=== PATIENT | female | born 2005 | race Two or more races ===

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

== ENCOUNTER 2024-05-30 17:26 | Emergency (ER) | payer MEDICAID ==
[~2024-05-30] VITALS: Ht 154.9 cm; Wt 64.4 kg
[~2024-05-30 17:26] MED LIST changes: +AZIT-43 PO; -AZIT250T9 PO; +IBUP1TAB5 PO; +MECL-90 PO; -MECL25TA18 PO
--- NOTE | 2024-05-30 17:46 | ED.PDOC ---
SOB-HPI HPI Comments HPI: Poor Historian. 18 y/o F presents to the ED for CC of shortness of breath. Patient states, she has been experiencing shortness of breath x1hour following working out at the gym. Patient comments on, taking pre-workout before the gym and is unsure if symptoms are related. Patient endorses, new symptoms of weakness and vertigo following her shortness of breath episode. Patient denies chest pain, nausea, vomiting, headache, or lightheadedness. No other symptoms or modifying factors at this time patient typically goes to the gym 6 times a week for proximally at least half an hour of exercise. This never happened to her before. Initial Vital Signs: Temp :98.2 BP:143/85 HR:104 RR:16 SpO2: 98 Past Medical History: DENIES ANY Past Surgical History:DENIES ANY Social History: Denies smoking, ETOH, or drug use. Medications: DENIES ANY Denies family history of coronary artery disease. Allergies: NKDA REVIEW OF SYSTEMS: CONSTITUTIONAL: Denies acute: fever, diaphoresis, chills, generalized weakness. HEAD: Denies acute: headache, photophobia Eyes: Denies acute: Double vision, vision loss, eye pain, eye discharge. EARS: Denies acute: tinnitus, hearing loss, ear discharge, ear pain, THROAT: Denies acute: sore throat, swelling, difficulty swallowing , pain with swallowing, change in voice. NECK: Denies acute: neck pain, neck swelling, stiff neck. HEART: Denies acute : palpitations, LUNGS: Denies acute: wheezing, cough, hemoptysis ABDOMEN: Denies acute: abdominal pain, Nausea, Vomiting, diarrhea, melena , hematemesis, hematochezia SKIN: Denies acute: rash, redness, lesions, itchiness. EXTREMITIES: Denies acute: calf pain, numbness, tingling, weakness, denies pain in extremity. Denies acute: Low back pain. Neuro: Denies acute: focal neurological deficit, motor or sensory focal neurological deficit, tremors, seizure like activity, confusion, dizziness, change in mental status, loss of bowel or bladder function, cauda equina like symptoms. : Denies acute: dysuria, hematuria, flank pain, increase in urinary frequency. PSYCH: Denies acute: hallucination, suicidal ideation, homicidal ideation. FEMALE: Denies acute: abnormal vaginal bleeding, foul odor, unusual discharge. PHYSICAL EXAM: General: no acute distress, awake and alert. Head: normocephalic, atraumatic. Neck: supple, trachea is midline, no swelling. Throat: Normal phonation. Eyes:, no erythema, no purulent discharge, no proptosis, no icterus. Heart: regular tachycardic, no significant murmur appreciated. Lungs: no apparent respiratory distress, Able to speak in full sentences. No wheezing, no rhonchi, no crackles. No stridors Clear to auscultation bilaterally. Abdomen: non tender to palpation, non distended, soft, no guarding, no rebound, + bowel sounds. Neuro: Awake, Alert, oriented to name, self, situation, follows commands GCS=15. Speech is normal. Skin: no petechia, no purpura, no cyanosis, non-pale, not jaundice. Lower extremities: --no - Pitting edema no deformity, no focal swelling, no calf TTP. Makes eye contact. moves all four extremities. Face: no apparent facial droop. Ambulating in the ED independently. ED COURSE: Chief Complaint: Shortness of Breath Time Seen by MD: 17:44 Primary Care Provider: MARISABELIES Reviewed notes: Nurses Notes, Medications, Allergies Information Source: Patient Mode of Arrival: Ambulatory Severity: Moderate Timing: Hours Duration: Since onset Context: With Heavy Exertion History of: None Prehospital treatment: None Modifying Factors: Nothing Was a procedure done? Was a procedure done?: No Differential Dx Differential Diagnosis: Anxiety, Panic Attack, Other (DDx include ACS, unstable angina, anxiety, PE, pneumothroax, neoplasm, cardiac ischemia, COPD, asthma, CHF, pleural effusion, tobacco abuse, pneumonia, hypoxia, hypercapnia, anemia., infection/sepsis., pulmonary edema. Asthma, Cardiac tamponade, infection.) X-Ray, Labs, Meds, VS Vital Signs Date Time Temp Pulse Resp B/P (MAP) Pulse Ox O2 Delivery O2 Flow Rate FiO2 05/30/24 22:46 97.9 92 12 145/75 (98) 100 97.9 05/30/24 21:19 20 99 Room Air* 0 21 05/30/24 19:01 93 20 98 Room Air* 0 21 05/30/24 18:48 97.8 93 19 149/77 (101) 98 97.8 05/30/24 17:46 98.2 82 16 143/85 (104) 98 05/30/24 17:46 16 98 Room Air* 0 21 05/30/24 17:45 107 Lab Test 05/30/24 20:50 05/30/24 20:05 05/30/24 19:02 05/30/24 17:49 Range/Units Lactic Acid Level 2.0 2.5 *H 2.9 *H 0.4-2.0 mmol/L Troponin I High Sensitivity 3 L < 3 L < 3 L </=34 ng/L Urine Color Yellow Yellow Urine Clarity Clear Clear Urine pH 5.5 5.0-9.0 Urine Specific [place] 1.032 1.001-1.035 Urine Protein Trace H Negative Urine Ketones 3+ H Negative Urine Blood 1+ H Negative /uL Urine Nitrite Negative Negative Urine Bilirubin Negative Negative Urine Urobilinogen Normal Negative mg/dL Urine Leukocyte Esterase Negative Negative /uL Urine RBC 1 0 - 4 /hpf Urine Microscopic WBC 1 0-5 /HPF Urine Squamous Epithelial Cells Few <5 /hpf Urine Bacteria None seen None Seen /hpf Urine Mucus Few None Seen Urine Glucose Normal Normal mg/dL Urine Test Negative Negative Urine Opiates Screen Neg NEGATIVE Urine Fentanyl Screen Neg NEGATIVE Urine Barbiturates Screen Neg NEGATIVE Urine Phencyclidine Screen Neg NEGATIVE Urine Amphetamines Screen Neg NEGATIVE Urine Benzodiazepines Screen Neg NEGATIVE Urine Cocaine Screen Neg NEGATIVE Urine Cannabinoids Screen Neg NEGATIVE White Blood Count 7.0 4.4-10.8 10^3/uL Red Blood Count 4.78 4.0-5.20 10^6/uL Hemoglobin 13.8 12.2-16.2 g/dL Hematocrit 40.5 36.0-46.0 % Mean Corpuscular Volume 84.7 80.0-100.0 fL Mean Corpuscular Hemoglobin 29.0 28.0-32.0 pg Mean Corpuscular Hemoglobin Concent 34.2 32.0-36.0 g/dL Red Cell Distribution Width 15.5 H 11.8-14.3 % Platelet Count 295 140-450 10^3/uL Mean Platelet Volume 7.4 6.9-10.8 fL Neutrophils (%) (Auto) 72.9 37.0-80.0 % Lymphocytes (%) (Auto) 17.9 10.0-50.0 % Monocytes (%) (Auto) 7.0 0.0-12.0 % Eosinophils (%) (Auto) 0.2 0.0-7.0 % Basophils (%) (Auto) 2.0 0.0-2.0 % Neutrophils # (Auto) 5.1 1.6-8.6 10 ^3/uL Lymphocytes # (Auto) 1.2 0.4-5.4 10 ^3/uL Monocytes # (Auto) 0.5 0-1.3 10 ^3/uL Eosinophils # (Auto) 0 0-0.8 10 ^3/uL Basophils # (Auto) 0.1 0-0.2 10 ^3/uL Nucleated Red Blood Cells 0.0 % D-Dimer, Quantitative 0.20 0.0-0.49 mg/L FEU Sodium Level 140 136-145 mmol/L Potassium Level 3.6 3.5-5.1 mmol/L Chloride Level 107 98-107 mmol/L Carbon Dioxide Level 19 L 20-31 mmol/L Anion Gap 14 5-15 Blood Urea Nitrogen 12 9-23 mg/dL Creatinine 1.00 0.550-1.02 mg/dL Glomerular Filtration Rate Calc 83 >90 mL/min BUN/Creatinine Ratio 12.0 10.0-20.0 Serum Glucose 116 H 74-106 mg/dL Calcium Level 10.8 H 8.7-10.4 mg/dL Magnesium Level 1.8 1.6-2.6 mg/dL Total Bilirubin 0.8 0.2-1.0 mg/dL Aspartate Amino Transferase (AST) 14 13-40 U/L Alanine Aminotransferase (ALT) 15 7-40 U/L Alkaline Phosphatase 75 46-116 U/L B-Type Natriuretic Peptide 22.67 0-100 pg/mL Total Protein 7.6 5.7-8.2 g/dL Albumin 5.1 H 3.2-4.8 g/dL Thyroid Stimulating Hormone (TSH) 1.90 0.55-4.78 uIU/mL Test 05/30/24 17:41 Range/Units POC Glucose 123 H 70-106 mg/dl Current Medications Medications (Trade) Dose Ordered Sig/Kate Route Start Time Stop Time Status Last Admin Sodium Chloride 1,000 ml @ 1,000 mls/hr Q1H ONCE IV 05/30/24 18:45 05/30/24 19:44 DC 05/30/24 18:59 Sodium Chloride 1,000 ml @ 1,000 mls/hr Q1H ONCE IV 05/30/24 20:15 05/30/24 21:14 DC 05/30/24 20:56 Albuterol (Ventolin Medneb) 2.5 mg ONCE ONCE NEB 05/30/24 22:00 05/30/24 22:01 DC 05/30/24 22:19 Ipratropium [place] (Atrovent Medneb) 1 mg ONCE ONCE NEB 05/30/24 22:00 05/30/24 22:01 DC 05/30/24 22:19 [place] [address] Ph: [phone] DIAGNOSTIC IMAGING Diagnostic Imaging Report : [id number] Signed PATIENT: YENIFER ANGEL ACCT: [id number] UNIT: [id number] : 2005 LOC: ER ROOM / BED: / AGE / SEX: 18 / F ADM STATUS: REG ER SERVICE [id number] ORDERING PHYSICIAN: SUMI HUERTAS DO PROCEDURE(s): CXRP - CHEST PORTABLE REASON: sob ORDER NUMBER(s): [id number], ACCESSION NUMBER(s): [id number] CHEST RADIOGRAPH Indication: sob Technique: Single frontal view of the chest was obtained COMPARISON: CHEST PORTABLE on DOS: 10/19/21, CHEST PORTABLE on DOS: 10/08/21, CXRP on DOS: 10/08/21 FINDINGS: Lines and Tubes: None Lungs: Clear Pleura: No effusion. No pneumothorax. Cardiomediastinal contours: Unremarkable Bones: Unremarkable IMPRESSION: No acute disease. ATED BY: JEREMIE CRAIN MD DICTATED DATE/TIME: 05/30/241803 SIGNED BY: JEREMIE CRAIN MD SIGNED DATE/TIME: 05/30/241803 CC: Time of 1ST Reevaluation: 18:04 Reevaluation 1ST: Unchanged Patient Education/Counseling: Diagnosis, Treatment Family Education/Counseling: No Family Present Comments Patient presented with the above HPI.--- SHORTNESS OF BREATH ---workup was initiated. patient was found with the above mentioned diagnosis. the following medications were ordered: please refer to order lists of meds and tests obtained by myself Dr. Huertas. Patient ED course and VS have been stabilized. Patient has been reassessed in the ED and remained in a stable condition. Pertinent incidental findings were discussed with the patient and/or family. Patient/family voices understanding and is agreeable with plan. Patient has been observed in the ED adequate length of time to insure improvement/stability. Escalation of care considered: Consideration of escalation to observation or admission Patient appeared anxious. Patient was DISCHARGED home in a stable condition. All the reports of any imaging studies that were ordered by myself were reviewed by myself. Departure 1 Departure Time of Disposition: 21:56 Impression: Primary Impression: Dyspnea Disposition: 01 HOME / SELF CARE / HOMELESS Condition: Stable Additional Instructions: Additional discharge instructions: You MUST follow-up with your primary care/family doctor in 1 to 2 days. If you are unable to see your primary care/family doctor, please return to our emergency room for re-assessment and re-evaluation in 1 to 2 days. Return to the emergency room here in our facility or to the nearest ER PAT if your symptoms change or worsen. CONSULTATIONS: you MUST Follow-up for consultation as soon as possible with: pulmonology and cardiology in 1-2 days. Please call for appointment. You MUST call the consultants office yourself to make an appointment. You may need to arrange that through your insurance and/or your primary/family doctor. If you are unable to see the residential solar consultant in 1 to 2 days, you must return to our emergency room (or any other ER of your choice) for re-assessment and re- evaluation. Adequate fluid hydration. Below is a copy of your radiological report for follow up: [address] [address] Ph: [phone] DIAGNOSTIC IMAGING Diagnostic Imaging Report : [id number] Signed PATIENT: YENIFER ANGEL ACCT: [id number] UNIT: [id number] : 2005 LOC: ER ROOM / BED: / AGE / SEX: 18 / F ADM STATUS: REG ER SERVICE 1741 ORDERING PHYSICIAN: SUMI HUERTAS DO PROCEDURE(s): CXRP - CHEST PORTABLE REASON: sob ORDER NUMBER(s): [id number], ACCESSION NUMBER(s): [id number] CHEST RADIOGRAPH Indication: sob Technique: Single frontal view of the chest was obtained COMPARISON: CHEST PORTABLE on DOS: 10/19/21, CHEST PORTABLE on DOS: 10/08/21, CXRP on DOS: 10/08/21 FINDINGS: Lines and Tubes: None Lungs: Clear Pleura: No effusion. No pneumothorax. Cardiomediastinal contours: Unremarkable Bones: Unremarkable IMPRESSION: No acute disease. ATED BY: JEREMIE CRAIN MD DICTATED DATE/TIME: 05/30/241803 SIGNED BY: JEREMIE CRAIN MD SIGNED DATE/TIME: 05/30/241803 CC: Discharged With: Self Critical Care Note Critical Care Time?: No Heart Score Heart Score: Heart Score Response (Comments) Value History Slightly Suspicious 0 EKG Normal 0 Age <45 0 Risk Factors No known risk factors 0 Troponin Normal limit 0 Total 0 I personally scribed for SUMI HUERTAS DO ([email or web address]) on 05/30/24 at 17:46. Electronically submitted by Iona Lott ([email or web address]). I personally scribed for SUMI HUERTAS DO ([email or web address]) on 05/30/24 at 17:50. Electronically submitted by Iona Lott ([email or web address]). I personally scribed for SUMI HUERTAS DO ([email or web address]) on 05/30/24 at 18:15. Electronically submitted by Iona Lott ([email or web address]). SUMI HUERTAS DO May 30, 2024 17:46
--- NOTE | 2024-05-30 18:09 | DVH ---
CHEST RADIOGRAPH Indication: sob Technique: Single frontal view of the chest was obtained COMPARISON: CHEST PORTABLE on DOS: 10/19/21, CHEST PORTABLE on DOS: 10/08/21, CXRP on DOS: 10/08/21 FINDINGS: Lines and Tubes: None Lungs: Clear Pleura: No effusion. No pneumothorax. Cardiomediastinal contours: Unremarkable Bones: Unremarkable IMPRESSION: No acute disease.
[2024-05-30 18:14] LABS: Basophils # (auto) 0.1 10 ^3/uL (0-0.2); Eosinophils # (auto) 0 10 ^3/uL (0-0.8); Eosinophils % (auto) 0.2 % (0.0-7.0); Hematocrit 40.5 % (36.0-46.0); Hemoglobin 13.8 g/dL (12.2-16.2); Lymphocytes # (auto) 1.2 10 ^3/uL (0.4-5.4); Lymphocytes % (auto) 17.9 % (10.0-50.0); Mean Corpuscular Hgb Conc. 34.2 g/dL (32.0-36.0); Mean Corpuscular Volume 84.7 fL (80.0-100.0); Monocytes # (auto) 0.5 10 ^3/uL (0-1.3); Neutrophils # (auto) 5.1 10 ^3/uL (1.6-8.6); Neutrophils % (auto) 72.9 % (37.0-80.0); Platelet Count (auto) 295 10^3/uL (140-450); Red Blood Cells 4.78 10^6/uL (4.0-5.20); Red Cell Distribution Width 15.5 % (11.8-14.3)
[2024-05-30 18:31] LABS: Alanine Aminotransferase 15 U/L (7-40); Alkaline Phosphatase 75 U/L (46-116); Anion Gap 14 (5-15); Aspartate Aminotransferase 14 U/L (13-40); Blood Urea Nitrogen 12 mg/dL (9-23); Magnesium 1.8 mg/dL (1.6-2.6); Potassium 3.6 mmol/L (3.5-5.1); Sodium 140 mmol/L (136-145)
[2024-05-30 18:32] LABS: Albumin 5.1 g/dL (3.2-4.8); Bilirubin, Total 0.8 mg/dL (0.2-1.0); Calcium 10.8 mg/dL (8.7-10.4); Carbon Dioxide 19 mmol/L (20-31); Chloride 107 mmol/L (98-107); Glucose 116 mg/dL (74-106); Total Protein 7.6 g/dL (5.7-8.2)
[2024-05-30 18:35] LABS: Lactic Acid w/Reflex 2.9 mmol/L (0.4-2.0)
[2024-05-30] MEDS: SODIUM CHLORIDE 0.9% 1,000 ML IV ONE ×2 (18:59→20:56)
[2024-05-30 19:01] VITALS: PULSE 93; RESP 20; O2SAT 98
[2024-05-30 20:06] LABS: Urine Bacteria None Seen /hpf (None Seen)
[2024-05-30 20:29] LABS: Urine Blood 1+ /uL (Negative); Urine Clarity Clear (Clear); Urine Color Yellow (Yellow); Urine Mucus FEW (None Seen); Urine Protein, UAD TRACE (Negative); Urine Specific Gravity 1.032 (1.001-1.035); Urine Squamous Epithelial Cell FEW /hpf (<5); Urine Urobilinogen Normal (Negative); Urine WBC 1 /HPF (0-5); Urine pH 5.5 (5.0-9.0)
[2024-05-30 21:37] LABS: Amphetamine Screen, Urine Neg (NEGATIVE); Barbiturate Scree,Urine Neg (NEGATIVE); Benzodiazephine Screen, Urine Neg (NEGATIVE); Cannabinoid Screen, Urine Neg (NEGATIVE); Cocaine Screen, Urine Neg (NEGATIVE); Opiate Scree,Urine Neg (NEGATIVE); Phencyclidine Screen, Urine Neg (NEGATIVE)
[2024-05-30] MEDS: ALBUTEROL SULF 2.5 MG/0.5ML(0.5%) NEB SOLN NEB ONE (22:19)
[2024-05-30] MEDS: IPRATROPIUM BROM 0.5 MG/2.5ML INH SOL NEB ONE (22:19)
[2024-05-30 22:46] VITALS: BP 145/75; PULSE 92; RESP 12; TEMP 97.9; O2SAT 100
--- NOTE | 2024-05-31 09:22 | ECG ---
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
== END 2024-05-30 22:50 | disposition home or self-care (01) ==
LOC: ER 17:26
DX: R06.00 Dyspnea, unspecified (principal); R42 Dizziness and giddiness; R53.1 Weakness; Z79.899 Other long term (current) drug therapy
CPT/HCPCS: 36415; 71045; 80053; 80307; 81001; 81025; 82962; 83605; 83735; 83880; 84443; 84484; 85025; 85379; 93005; 94640; 96360; 96361; 99285; J7030